=== PATIENT | female | born 1960 | race Caucasian/White ===

== ENCOUNTER 2016-09-17 16:47 | Emergency (ER) | payer SELFPAY ==
[~2016-09-17 16:47] MED LIST: ELIMITE TOPICAL CREAM ONE
[2016-09-17 17:24] VITALS: BP 129/75; BMI 22.8
--- NOTE | 2016-09-17 17:31 | DR.RASH ---
HPI - Time Seen Time seen: 17:25 - PCP Primary Care Physician: SEMAJ - HPI Comment HPI Comment: GENERALIZE SKIN RASH WITH PRURITUS FOR 9 DAYS. BELIEVE IS SCABIES FROM HER DOG. PRURITUS WORSE TODAY. - Complaint Chief Complaint:: PT C/O HAVING A RASH TO HER ABD AND LEGS AND ARMS.. Chief Complaint Doctors Comments: GENERALIZE RASH. Onset of Chief Complaint: 09/08/16 - Reviewed Nurses Notes Review: Yes - Source History Provided: Patient - Mode of Arrival Mode of Arrival: Ambulatory - Location Location: Other (GENERALIZE) - Quality Quality: Pruritic, Other (PAPULAR LESIONS) - Context Circumstances: Spontaneous onset History of: None - Severity Pain Severity: Moderate - Associated signs and symptoms Associated signs and symptoms: None PMH - PMH Past Medical History: No Past Medical History: Anxiety, Depression Past Surgical History: No Surgical History: Other - Family History History of Family Medical Conditions: No Family Medical History: Cancer, Coronary Artery Disease - Social History Does patient currently use any type of tobacco product: Yes Have you used tobacco products in the last 12 months: Yes Type of Tobacco Use: Cigarettes How many years tobacco product used: 30 Does any household member use tobacco: No Alcohol Use: None Do you use any recreational Drugs:: No Lives With: Alone Lives Where: Home - infectious screening In the last 2 months have you had wt loss of >10#?: NO Have you had fever, night sweats or hemotysis?: No Have you traveled outside the country in the last 6 months?: No Isolation: Standard ROS - Review of Systems Constitutional: No Symptoms Reported Eyes: No Symptoms Reported ENTM: No Symptoms Reported Respiratoy: No Symptoms Reported Cardiovascular: No Symptoms Reported Gastrointestinal/Abdominal: No Symptoms Reported Genitourinary: No Symptoms Reported Neurological: No Symptoms Reported Musculoskeletal: No Symptoms Reported Integumentary: Rash, Itching (GENERALIZE) Hematologic/Lymphatic: No Symptoms Reported Endocrine: No Symptoms Reported All Other Systems: Reviewed and Negative PE - Vital Signs Vitals: Pulse Rate 83 Respiratory Rate 20 Blood Pressure 129/75 O2 Sat by Pulse Oximetry 98 - General Limitations: No Limitations General Appearance: Alert - Head Head Exam: Normal Inspection - Eyes Eye exam: Normal Appearance - ENT ENT Exam: Normal External Ear Exam External Ear Exam: Normal External Inspection TM/Canal Exam: Bilateral Normal Nose Exam: Normal Nose Exam Mouth Exam: Normal Inspection Teeth Exam: Normal Inspection Throat Exam: Normal Inspection - Neck Neck Exam: Trachea Midline - Chest Chest Inspection: Symmetric Chest Wall Rise - Respiratory Respiratory Exam: Normal Lung Sounds Bilat Respiratory Exam: Bilateral Clear to Auscultation - Cardiovascular Cardiovascular Exam: Regular Rate, Normal Rhythm, Normal Heart Sounds - Abdominal Exam Abdominal Exam: Normal Inspection - Extremities Extremities Exam: Normal Inspection - Back Back Exam: Normal Inspection - Neurologic Neurological Exam: Alert, Oriented X3 - Psychiatric Psychiatric Exam: Normal Affect, Normal Mood - Skin Skin Exam: Rash, Erythema, Other (MACULOPAPULAR RASH.) Distribution: Generalized Description: Macular, Papular MDM - Differential Diagnosis Differential Diagnosis: Cellulitis, Contact dermatitis, Intertrigo, Scabies Course - Education/Counseling Education/Counseling: Patient, Education Educated On: Diagnosis, Needs for Follow Up - Diagnosis Discharge Problem: Scabies, Rash - Discharge Plan Disposition: HOME, SELF-CARE Condition: Stable Prescriptions: Hydroxyzine Pamoate [Vistaril] 25 mg PO TID PRN #15 cap PRN Reason: Permethrin [Elimite] 5 % EX ONCE #1 bottle - Follow ups/Referrals Follow ups/Referrals: NFD,None [Primary Care Provider] - 3 days - Instructions Instructions: Pruritus, Scabies, Pediatric Additional Instructions: RETURN TO ED IF WORSE.
== END 2016-09-17 17:38 | disposition home or self-care (01) ==
LOC: ER 16:47
DX: B86 Scabies (principal); R21 Rash and other nonspecific skin eruption
CPT/HCPCS: 99281; 99282

== ENCOUNTER 2017-03-29 09:03 | Emergency (ER) | payer SELFPAY ==
[2017-03-29 09:08] VITALS: BP 121/68; BMI 19.3
[2017-03-29] MEDS ORDERED: DUONEB 0.5 MG/3 MG ONE ×2 (09:19→09:33)
[2017-03-29] MEDS ORDERED: SOLU-Medrol 125 MG VIAL IVP ONE (09:19)
[2017-03-29] MEDS ORDERED: DUONEB 0.5 MG/3 MG NEB ONE ×2 (09:20→09:33)
--- NOTE | 2017-03-29 09:21 | DR.GENAD ---
HPI - PCP Primary Care Physician: nfd - Complaint/Symptoms Chief Complaint Doctors Comments: Patient admits to cough for two or more weeks but is not getting better. She denies fever, vomiting or diarrhea. Admits 1.5ppd for years. Chief Complaint:: patient stated she has had a ough for a coupl of weeks but the past weekend it was so bad she couldnt eat or sleep. went to work today but had to leave due to the coughing. - Source History Provided: Patient - Mode of Arrival Mode of Arrival: Ambulatory - Timing Onset of Chief Complaint: 03/15/17 PMH - PMH Past Medical History: Yes Past Medical History: Anxiety, Depression Past Surgical History: No Surgical History: Other - Family History History of Family Medical Conditions: Yes Family Medical History: Cancer, Coronary Artery Disease, Heart Failure - Social History Does patient currently use any type of tobacco product: Yes Have you used tobacco products in the last 12 months: Yes Type of Tobacco Use: Cigarettes How many years tobacco product used: 30 Does any household member use tobacco: No Alcohol Use: None Do you use any recreational Drugs:: No Lives With: Family Lives Where: Home - infectious screening In the last 2 months have you had wt loss of >10#?: NO Have you had fever, night sweats or hemotysis?: No Have you traveled outside the country in the last 6 months?: No Isolation: Standard ROS - Review of Systems Constitutional: negative: Diaphoresis Eyes: No Symptoms Reported ENTM: No Symptoms Reported Respiratoy: No Symptoms Reported Cardiovascular: No Symptoms Reported Gastrointestinal/Abdominal: No Symptoms Reported Genitourinary: No Symptoms Reported Neurological: No Symptoms Reported Musculoskeletal: No Symptoms Reported Integumentary: No Symptoms Reported Hematologic/Lymphatic: No Symptoms Reported Endocrine: No Symptoms Reported Psychiatric: No Symptoms Reported All Other Systems: Reviewed and Negative PE - Vital Signs Vitals: Temperature 98.1 F Pulse Rate 79 Respiratory Rate 16 Blood Pressure 121/68 O2 Sat by Pulse Oximetry 93 - General Limitations: No Limitations General Appearance: Alert, In No Apparent Distress, Appears Intoxicated - Head Head Exam: Normal Inspection, Atraumatic - Eyes Eye exam: Normal Appearance, PERRL, EOMI - ENT ENT Exam: Normal Exam External Ear Exam: Normal External Inspection TM/Canal Exam: Bilateral Normal Nose Exam: Normal Nose Exam Mouth Exam: Normal Inspection Throat Exam: Normal Inspection - Neck Neck Exam: Normal Inspection, Full ROM - Chest Chest Inspection: Normal Inspection - Respiratory Respiratory Exam: Normal Lung Sounds Bilat Respiratory Exam: Bilateral Rhonchi (inspiratory/expiratory) - Cardiovascular Cardiovascular Exam: Regular Rate, Normal Rhythm - Abdominal Exam Abdominal Exam: Normal Inspection, Normal Bowel Sounds Abdominal Tenderness: negative: RUQ, RLQ, LUQ, LLQ, Epigastrium, Suprapubic, Diffuse, Mild, Moderate, Severe, Other - Extremities Extremities Exam: Normal Inspection, Full ROM - Back Back Exam: Normal Inspection - Neurologic Neurological Exam: Alert, Oriented X3, CN II-XII Intact - Psychiatric Psychiatric Exam: Normal Affect - Skin Skin Exam: Warm, Dry Course - Treatment Treatment: Neb treatments,NS,CxR - Reevaluation 1st: Improved ROR - Labs Reviewed Result Diagrams: 03/29/17 09:32 03/29/17 09:32 Laboratory: WBC 11.3 X10^3/uL (3.6-10.0) H 03/29/17 09:32 RBC 4.53 X10^6/uL (3.5-5.4) 03/29/17 09:32 Hgb 14.3 g/dL (12.0-16.0) 03/29/17 09:32 Hct 42.1 % (36.0-47.0) 03/29/17 09:32 MCV 92.9 fL (80.0-100.0) 03/29/17 09:32 MCH 31.6 pg (27.0-34.0) 03/29/17 09:32 MCHC 34.0 g/dL (33.0-35.0) 03/29/17 09:32 RDW 13.0 % (11.6-16.5) 03/29/17 09:32 Plt Count 205 X10^3/uL (150.0-450.0) 03/29/17 09:32 Plt Count Comment Adequate (ADEQUATE) 03/29/17 09:32 MPV 11.7 fL (7.4-11.0) H 03/29/17 09:32 Neut % 23.5 % (42.0-75.0) L 03/29/17 09:32 Lymph % 53.7 % (21.0-51.0) H 03/29/17 09:32 [place] % 12.3 % (0.0-13.0) 03/29/17 09:32 Eos % 9.6 % (0.9-2.9) H 03/29/17 09:32 Baso % 0.9 % (0.2-1.0) 03/29/17 09:32 Neut # 2.7 x10^3/uL (2.2-4.8) 03/29/17 09:32 Lymph # 6.1 X10^3/uL (1.3-2.9) H 03/29/17 09:32 [place] # 1.4 x10^3/uL (0.3-0.8) H 03/29/17 09:32 Eos # 1.1 x10^3/uL (0.0-0.2) H 03/29/17 09:32 Baso # 0.1 X10^3/uL (0.0-0.1) 03/29/17 09:32 Absolute Nucleated RBC 0.1 /100WBC 03/29/17 09:32 Giant Platelets Present 03/29/17 09:32 Plt Morphology Comment Normal (NORMAL) 03/29/17 09:32 RBC Morphology Normal (NORMAL) 03/29/17 09:32 Sodium 140 mmol/L (136-145) 03/29/17 09:32 Corrected Sodium TNP 03/29/17 09:32 Potassium 4.0 mmol/L (3.5-5.1) 03/29/17 09:32 Chloride 104 mmol/L (98-107) 03/29/17 09:32 Carbon Dioxide 29.8 mmol/L (21-32) 03/29/17 09:32 BUN 16 mg/dL (7-18) 03/29/17 09:32 Creatinine 0.61 mg/dL (0.55-1.02) 03/29/17 09:32 Est GFR (MDRD) Af Amer > 60 (>60) 03/29/17 09:32 Est GFR (MDRD) Non-Af > 60 (>60) 03/29/17 09:32 Glucose 84 mg/dL (65-99) 03/29/17 09:32 Calcium 8.4 mg/dL (8.5-10.1) L 03/29/17 09:32 Corrected Calcium 9.0 mg/dL (8.5-10.1) 03/29/17 09:32 Total Bilirubin 0.40 mg/dL (0.2-1.0) 03/29/17 09:32 AST 41 Units/L (15-37) H 03/29/17 09:32 ALT 53 Units/L (12-78) 03/29/17 09:32 Alkaline Phosphatase 57 Units/L (46-116) 03/29/17 09:32 Total Protein 7.7 g/dL (6.4-8.2) 03/29/17 09:32 Albumin 3.3 g/dL (3.4-5.0) L 03/29/17 09:32 Globulin 4.4 g/dL (2.5-4.5) 03/29/17 09:32 Albumin/Globulin Ratio 0.8 Ratio (1.1-2.1) L 03/29/17 09:32 - XRAY XRAY Interpreted by: Radiologist (Chest: Mild peribronchial thickening that culd represent acute or chronic broncvhitis.) - Diagnosis Discharge Problem: Bronchitis - Discharge Plan Condition: Stable - Follow ups/Referrals Follow ups/Referrals: NFD,None [Primary Care Provider] - 3 days - Instructions
[2017-03-29] MEDS ORDERED: NS 1000 ML 1,000 ML ONE (09:26)
[2017-03-29] MEDS ORDERED: SOLU-Medrol 125 MG VIAL ONE ×2 (09:26→09:28)
[2017-03-29] MEDS ORDERED: NS 1000 ML 1,000 ML IV SCH (10:00)
[2017-03-29 10:03] LABS: BASOPHILS # (AUTO) 0.1 X10^3/uL (0.0-0.1); BASOPHILS % (AUTO) 0.9 % (0.2-1.0); EOSINOPHILS # (AUTO) 1.1 x10^3/uL (0.0-0.2); EOSINOPHILS % (AUTO) 9.6 % (0.9-2.9); HEMATOCRIT 42.1 % (36.0-47.0); HEMOGLOBIN 14.3 g/dL (12.0-16.0); LYMPHOCYTES # (AUTO) 6.1 X10^3/uL (1.3-2.9); LYMPHOCYTES % (AUTO) 53.7 % (21.0-51.0); MEAN CORPUSCULAR HEMOGLOBIN 31.6 pg (27.0-34.0); MEAN CORPUSCULAR VOLUME 92.9 fL (80.0-100.0); MEAN PLATELET VOLUME 11.7 fL (7.4-11.0); MONOCYTES # (AUTO) 1.4 x10^3/uL (0.3-0.8); MONOCYTES % (AUTO) 12.3 % (0.0-13.0); NEUTROPHILS # (AUTO) 2.7 x10^3/uL (2.2-4.8); NEUTROPHILS % (AUTO) 23.5 % (42.0-75.0); PLATELET COUNT 205 X10^3/uL (150.0-450.0); RED BLOOD COUNT 4.53 X10^6/uL (3.5-5.4); WHITE BLOOD COUNT 11.3 X10^3/uL (3.6-10.0)
[2017-03-29 10:13] LABS: ALANINE AMINOTRANSFERASE 53 Units/L (12-78); ALBUMIN 3.3 g/dL (3.4-5.0); ALKALINE PHOSPHATASE 57 Units/L (46-116); ASPARTATE AMINO TRANSFERASE 41 Units/L (15-37); BLOOD UREA NITROGEN 16 mg/dL (7-18); CALCIUM 8.4 mg/dL (8.5-10.1); CARBON DIOXIDE 29.8 mmol/L (21-32); CHLORIDE 104 mmol/L (98-107); CREATININE 0.61 mg/dL (0.55-1.02); SODIUM 140 mmol/L (136-145); TOTAL PROTEIN 7.7 g/dL (6.4-8.2); eGFR BLACK RACES > 60 (>60); eGFR NON BLACK RACES > 60 (>60)
[2017-03-29 10:38] LABS: GIANT PLATELET PRESENT; PLATELET MORPHOLOGY COMMENT NORMAL (NORMAL)
--- NOTE | 2017-03-29 10:52 | RAD ---
HISTORY: Cough x2 weeks Study: Single view chest Comparison: 01/29/2012 Findings: There is mild peribronchial thickening seen, similar to prior study. The lungs are clear without cons olidation, effusion or pneumothorax. The cardiac and mediastinal contours are within normal limits. The soft tissues are unremarkable. IMPRESSION: 1. Mild peribronchial thickening that could represent acute or chronic bronchitis. Reported By:
== END 2017-03-29 11:09 | disposition home or self-care (01) ==
LOC: ER 09:10
DX: J40 Bronchitis, not specified as acute or chronic (principal); Z72.0 Tobacco use
CPT/HCPCS: 36415; 71010; 80053; 85025; 96365; 96367; 96374; 99283; A4222; J2930; J7620

== ENCOUNTER 2017-08-17 18:07 | Emergency (ER) | payer SELFPAY ==
[2017-08-17 21:05] VITALS: BP 138/65
--- NOTE | 2017-08-17 21:07 | DR.GENAD ---
HPI - PCP Primary Care Physician: NFD - Complaint/Symptoms Chief Complaint Doctors Comments: cold and cough for maybe 3 days. The cough is productive, she can't say if its colored as she doesn't look at it. Some chest muscle soreness from coughing. She denies sneezing or runny nose. Chief Complaint:: PT C/O CCC, ? BRONCHITIS, AND ? PULLED MUSCLE . Self Treatment fo Chief Complaint: OTC MEDS - Nurses notes reviewed Nurses Notes Review: Yes - Source History Provided: Patient - Mode of Arrival Mode of Arrival: Ambulatory - Timing Onset of Chief Complaint: 08/14/17 PMH - PMH Past Medical History: Yes Past Medical History: Anxiety, Depression Past Surgical History: Yes Surgical History: Other - Family History History of Family Medical Conditions: Yes Family Medical History: Cancer, Coronary Artery Disease, Heart Failure - Social History Does patient currently use any type of tobacco product: Yes Have you used tobacco products in the last 12 months: Yes Type of Tobacco Use: Cigarettes How many years tobacco product used: 39 Does any household member use tobacco: No Alcohol Use: None Do you use any recreational Drugs:: No Lives With: Family Lives Where: Home - infectious screening In the last 2 months have you had wt loss of >10#?: NO Have you had fever, night sweats or hemotysis?: No Have you traveled outside the country in the last 6 months?: No Isolation: Standard ROS - Review of Systems Constitutional: Fever Eyes: No Symptoms Reported ENTM: No Symptoms Reported Respiratoy: Productive Cough Cardiovascular: No Symptoms Reported Gastrointestinal/Abdominal: No Symptoms Reported Genitourinary: No Symptoms Reported Neurological: No Symptoms Reported Musculoskeletal: No Symptoms Reported Integumentary: No Symptoms Reported Hematologic/Lymphatic: No Symptoms Reported Endocrine: No Symptoms Reported PE - Vital Signs Vitals: Temperature 97 F Pulse Rate [Left] 78 Pulse Rate 87 Respiratory Rate 18 Blood Pressure [Right Arm] 138/65 Blood Pressure 138/75 O2 Sat by Pulse Oximetry 96 - General Limitations: No Limitations General Appearance: Alert, In No Apparent Distress - Head Head Exam: Normal Inspection - Eyes Eye exam: Normal Appearance - ENT ENT Exam: Normal Exam - Neck Neck Exam: Normal Inspection - Chest Chest Inspection: Normal Inspection - Respiratory Respiratory Exam: Normal Lung Sounds Bilat - Cardiovascular Cardiovascular Exam: Regular Rate, Normal Rhythm - Abdominal Exam Abdominal Exam: Normal Inspection, Normal Bowel Sounds, Soft - Extremities Extremities Exam: Normal Inspection - Back Back Exam: Normal Inspection - Neurologic Neurological Exam: Alert, Oriented X3 - Psychiatric Psychiatric Exam: Normal Affect, Normal Mood - Skin Skin Exam: Warm, Dry, Intact, Normal Color ROR - Labs Reviewed Laboratory: Influenza Type A (PCR) Negative (NEGATIVE) 08/17/17 21:10 Influenza Type B (PCR) Negative (NEGATIVE) 08/17/17 21:10 - XRAY XRAY Interpreted by: Radiologist (CXR: bronchitis) - Diagnosis Discharge Problem: Bronchitis - Discharge Plan Disposition: HOME, SELF-CARE Condition: Stable - Follow ups/Referrals Follow ups/Referrals: NFD,None [Primary Care Provider] - 3 days - Instructions
--- NOTE | 2017-08-17 21:56 | RAD ---
HISTORY: Cough and congestion. Question of bronchitis. Study: Portable chest. Comparison: Chest x-ray dated March 29, 2017. Findings: The trachea is midline. The cardiac silhouette is unremarkable. Chronic emphysematous changes. Mild peribronchial thickening. No obvious focal consolidation, pleural effusion, or pneumothorax. The [place] thorax is unremarkable. IMPRESSION: Mild peribronchial thickening, which could represent underlying bronchitis. Reported By:
[2017-08-17] MEDS ORDERED: BACTRIM DS TAB PO ONE ×2 (22:18→22:24)
[2017-08-17] MEDS ORDERED: ROBITUSSIN AC ONE (22:25)
[2017-08-18] MEDS ORDERED: ROBITUSSIN (PLAIN) PO ONE (22:18)
== END 2017-08-17 22:39 | disposition home or self-care (01) ==
LOC: ER 19:27
DX: J40 Bronchitis, not specified as acute or chronic (principal); Z72.0 Tobacco use
CPT/HCPCS: 71045; 87502; 99282; 99283

== ENCOUNTER 2017-09-28 19:28 | Emergency (ER) | payer OTHER ==
[2017-09-28 19:33] VITALS: BMI 19.3
--- NOTE | 2017-09-28 20:15 | DR.EXTPAIN ---
HPI - Time seen Time seen: 20:15 - PCP Primary Care Physician: NFD - Complaint/Symptoms Chief Complaint Doctor Comments: History as stated. Patient complains of left buttock pain when she sits. Chief Complaint:: "I HAVE A PULLED MUSCLE IN MY ASS CHEEK, LEFT ONE. IT HAS BEEN GOING ON SOME TIME. IT IS OK LONG I AM STANDING, BUT SITTING AND LAYING DOWN IT HURTS. IT WON'T GO AWAY. ALSO , I HAD TO LEAVE WORK([employer] ) EARLY YESTERDAY BC I GOT SO HOT. I NEED TO BE CHECKED OUT. I AM SUPPOSE TO GO TO WORK AFTER WHILE." - Source History Provided: Patient - Mode of arrival Mode of Arrival: Ambulatory - Timing Onset of Chief Complaint: 09/28/17 PMH - PMH Past Medical History: Yes Past Medical History: Anxiety, Depression Past Surgical History: No Surgical History: Other - Family History History of Family Medical Conditions: Yes Family Medical History: Cancer, Coronary Artery Disease, Heart Failure - Social History Type of Tobacco Use: Cigarettes Do you use any recreational Drugs:: No Lives Where: Home - infectious screening Have you traveled outside the country in the last 6 months?: No Isolation: Standard ROS - Review of Systems Eyes: No Symptoms Reported ENTM: No Symptoms Reported Respiratoy: No Symptoms Reported Cardiovascular: No Symptoms Reported Gastrointestinal/Abdominal: No Symptoms Reported Genitourinary: No Symptoms Reported Neurological: No Symptoms Reported Musculoskeletal: No Symptoms Reported Integumentary: No Symptoms Reported Hematologic/Lymphatic: No Symptoms Reported Endocrine: No Symptoms Reported Psychiatric: No Symptoms Reported All Other Systems: Reviewed and Negative PE - Vital Signs Vitals: Temperature 99.0 F Pulse Rate 80 Respiratory Rate 18 Blood Pressure [Right Arm] 138/65 Blood Pressure 128/63 O2 Sat by Pulse Oximetry 97 - General General Appearance: Alert, In No Apparent Distress - Head Head Exam: Normal Inspection, Atraumatic - Eyes Eye exam: Normal Appearance, PERRL, EOMI - ENT ENT Exam: Normal Exam, Normal Oropharynx - Neck Neck Exam: Normal Inspection, Full ROM - Chest Chest Inspection: Normal Inspection - Respiratory Respiratory Exam: Normal Lung Sounds Bilat Respiratory Exam: Bilateral Clear to Auscultation - Cardiovascular Cardiovascular Exam: Regular Rate, Normal Rhythm - Abdominal Exam Abdominal Exam: Normal Inspection, Normal Bowel Sounds Abdominal Tenderness: negative: RUQ, RLQ, LUQ, LLQ, Epigastrium, Suprapubic, Diffuse, Mild, Moderate, Severe, Other - Extremities Extremities Exam: Normal Inspection, Full ROM - Upper Extremities Shoulder Exam: Normal Inspection Arm Exam: Normal Inspection, Full ROM Elbow Exam: Normal Inspection Forearm Exam: Normal Inspection Hand Exam: Normal Inspection Neuromotor Exam: Normal Exam Neurosensory Exam: Normal Exam Upper Ext. Vascular Exam: Capillary Refill - Lower Extremities Hip/Pelvis Exam: Normal Inspection, Full ROM Upper Leg Exam: Normal Inspection, Full ROM Knee Exam: Normal Inspection Lower Leg Exam: Normal Inspection Ankle Exam: Normal Inspection Foot/Toe Exam: Normal Inspection Neurovascular/Tendon Exam: Normal Capillary Refill Gait Exam: Observed and Normal - Back Back Exam: Normal Inspection, Full ROM - Neurological Neurological Exam: Alert, Oriented X3, CN II-XII Intact - Psychiatric Psychiatric Exam: Normal Affect, Normal Mood - Skin Skin Exam: Warm, Dry Type of Lesion: negative: Rash, Abscess, Laceration, Foreign Body, Bite/Sting, Abrasion, Other Course - Reevaluation 1st: Unchanged ROR - XRAY XRAY Interpreted by: Radiologist (Hip: Normal allignment. No acute fracture or dislocation. The soft tissues are unremarkable Coarse calcification is seen in the central pelvis, possible related to a fibroid versus vascular calcification) - Diagnosis Discharge Problem: Left hip pain, pelvis calcification (fibroid vs calcifi - Discharge Plan Condition: Stable - Follow ups/Referrals Follow ups/Referrals: NFD,None [Primary Care Provider] - 3 days - Instructions
--- NOTE | 2017-09-28 21:28 | RAD ---
HISTORY: Left gluteal muscle pain, strain Study: Two views left hip Comparison: None Findings: Normal alignment. No acute fracture or dislocation. The soft tissues are unremarkable. Coarse calcif ication is seen in the central pelvis, possibly related to a fibroid versus vascular calcification IMPRESSION: 1. No acute osseous abnormality. Reported By:
[2017-09-28] MEDS ORDERED: TORADOL 30 MG VIAL IM ONE (21:34)
[2017-09-28] MEDS ORDERED: TORADOL 30 MG VIAL ONE (21:38)
[2017-09-28 21:48] VITALS: BP 133/69
== END 2017-09-28 21:48 | disposition home or self-care (01) ==
LOC: ER 19:28
DX: M25.552 Pain in left hip (principal); N28.89 Other specified disorders of kidney and ureter
CPT/HCPCS: 73501; 96372; 99282; J1885